=== PATIENT | female | born 1950 | race Caucasian/White ===

== ENCOUNTER → 2019-01-23 11:47 | Outpatient (CLI) | payer MEDICARE, OTHER, SELFPAY | PROVIDERS: Visit Provider Physician Assistant | DX: R30.0 Dysuria (principal) | CPT/HCPCS: 87086 ==

== ENCOUNTER → 2025-02-28 08:15 | Outpatient (CLI) | payer MEDICARE, SELFPAY | PROVIDERS: Visit Provider Family Medicine | DX: R30.0 Dysuria (principal); R35.0 Frequency of micturition; N89.8 Other specified noninflammatory disorders of vagina | CPT/HCPCS: 87077; 87086; 87186 ==